=== PATIENT | male | born 1980 | race Caucasian/White ===

== ENCOUNTER 2025-04-15 06:22 | Emergency (ER) | payer OTHER, SELFPAY ==
[2025-04-15 06:23] VITALS: BP 139/95
--- NOTE | 2025-04-15 07:09 | ED.GENMED ---
History of Present Illness
<Hernan Ryan MD, Resident - Last Filed: 04/15/25 10:07>
General
Chief Complaint: Abdominal Pain
Source: patient and significant other
Time Seen by Provider: 04/15/25 06:52
History of Present Illness
History of Present Illness:
Patient is a 44-year-old male with no PMH who presents to the [facility] ED with sudden onset, severe abdominal pain that started at 5:30 this morning upon waking. Since onset, the pain has been constant, localized to his right flank, fluctuating
in intensity, nonradiating, and nonmigrating. Nausea and vomiting x 2 in the ED this morning. Patient says his stomach has been feeling off for couple days, but he denies pain, nausea, or vomiting prior to this morning. Patient also had a brief
syncopal episode this morning, which caused him to hit his head on the nightstand. No headache, lightheadedness, dizziness, weakness, or numbness. The episode was witnessed by his , who states the patient was sweaty and pale prior to losing
consciousness. Patient has had intermittent palpitations over the last couple days. No chest pain, fever, fatigue, or chills. Patient drinks approximately 3 glasses of wine per night, with his last drink 2 days ago.
Past History
<Hrenan Ryan MD, Resident - Last Filed: 04/15/25 10:07>
Past History
ED Past Medical History: None
ED Past Surgical History: Other (Hernia repairs as an )
Social History
Tobacco: Non-smoker
Alcohol: Daily (3 glasses wine)
Drug: None
Personal:
Living: with family
Employment: Employed
Family History
Family History: CAD (Grandfather (smoker)) and Other (Kidney stones (mom)); Negative Sudden
Review of Systems
<Hernan Ryan MD, Resident - Last Filed: 04/15/25 10:07>
Review of Systems
Constitutional: Denies fever, fatigue or chills
Cardiac: Reports diaphoresis, palpitations and syncope; Denies chest pain
ABD/GI: Reports abdominal pain, nausea and vomiting; Denies diarrhea
: Reports flank pain; Denies dysuria, frequency, urgency or bleeding
Neurological: Denies dizzy, headache, weakness or numbness
Phy Exam
<Hernan Ryan MD, Resident - Last Filed: 04/15/25 10:07>
Physical Exam
Physical Exam:
General: Mild distress due to pain. Easily communicative.
GI: Soft, nondistended. Mildly TTP right flank. No McBurney point tenderness. Negative Evangelista. Negative Rovsing. No rigidity, guarding, or rebound tenderness.
: No CVA tenderness.
HEENT: NCAT. No gross ecchymoses, edema, or deformities.
CV: RRR. S1, S2 noted. No M/R/G. No LE edema.
Pulm: CTAB. No wheezes or crackles. No cyanosis.
Neuro: Sensory, motor intact all extremities. CN II through XII intact. No dysmetria. No dysdiadochokinesia. EOMI. Visual brown intact. PERRLA.
Psych: Calm
Course
<Hernan Ryan MD, Resident - Last Filed: 04/15/25 10:07>
Orders/Labs/Results
Orders:
Orders
04/15/25 07:19
0.9% Sodium Chloride 1000 ml [Nss] 1,000 ml IV BOLUS
04/15/25 07:22
Ketorolac [Toradol] 15 mg IV NOW STA
04/15/25 07:27
Ondansetron Injectable [Zofran] 4 mg IV NOW STA
04/15/25 07:28
CT Abd/pel Without Iv Or Oral Urgent
Comment:
Reason For Exam: R flank pain
04/15/25 07:29
Electrocardiogram (*1) Urgent
Reason for Study: Syncope
04/15/25 07:32
Complete Blood Count/With Diff Urgent
Comprehensive Metabolic Panel Urgent
Lipase Urgent
Troponin I Urgent
04/15/25 08:00
Flush (0.9% Sodium Chloride) [Flush (Nss)] See Dose Instructions IV PER PROTOCOL
04/15/25 08:26
Tamsulosin [Flomax] 0.4 mg PO NOW ONE
04/15/25 08:37
Urinalysis Reflex To Culture Urgent
Date Specimen was Collected: 04/15/25
Time Specimen was Collected: 08:36
Urine Microscopic Reflex Cult Urgent
04/15/25 09:20
Ketorolac [Toradol] 15 mg IV NOW STA
Abnormal Lab Results
04/15/25 04/15/25
07:32 08:37
RBC 4.56 L 10^6/uL
(4.70-6.10)
MCH 32.7 H pg
(27.0-31.0)
Absolute Lymphs (auto) 0.9 L 10^3/uL
(1.2-3.4)
Neutrophils % 79.7 H %
(42.2-75.2)
Lymphocytes % 13.6 L %
(20.5-51.1)
Glucose 140 H mg/dl
(70-99)
Urine Ketones 3+ A
(Negative)
Ur Occult Blood Reflex 4+ A
(Negative)
Urine RBC 40-50 A /HPF
(0-2)
Urine Bacteria (Reflex) Few A
(Negative)
Urine Albumin (Reflex) 2+ A
(Neg - Trace)
04/15/25 07:32
04/15/25 07:32
Vital Signs
Initial and Last Documented VS:
Initial Vital Signs
Pulse Resp BP Pulse Ox
61 18 139/95 100
04/15/25 06:23 04/15/25 06:23 04/15/25 06:23 04/15/25 06:23
Last Documented Vital Signs
Temp Pulse Resp BP Pulse Ox
98.3 F 71 18 116/63 98
04/15/25 09:40 04/15/25 09:40 04/15/25 06:23 04/15/25 09:40 04/15/25 09:40
<Sue Vazquez, - Last Filed: 04/15/25 09:22>
Orders/Labs/Results
Orders:
Orders
04/15/25 07:19
0.9% Sodium Chloride 1000 ml [Nss] 1,000 ml IV BOLUS
04/15/25 07:22
Ketorolac [Toradol] 15 mg IV NOW STA
04/15/25 07:27
Ondansetron Injectable [Zofran] 4 mg IV NOW STA
04/15/25 07:28
CT Abd/pel Without Iv Or Oral Urgent
Comment:
Reason For Exam: R flank pain
04/15/25 07:29
Electrocardiogram (*1) Urgent
Reason for Study: Syncope
04/15/25 07:32
Complete Blood Count/With Diff Urgent
Comprehensive Metabolic Panel Urgent
Lipase Urgent
Troponin I Urgent
04/15/25 08:00
Flush (0.9% Sodium Chloride) [Flush (Nss)] See Dose Instructions IV PER PROTOCOL
04/15/25 08:26
Tamsulosin [Flomax] 0.4 mg PO NOW ONE
04/15/25 08:37
Urinalysis Reflex To Culture Urgent
Date Specimen was Collected: 04/15/25
Time Specimen was Collected: 08:36
Urine Microscopic Reflex Cult Urgent
04/15/25 09:20
Ketorolac [Toradol] 15 mg IV NOW STA
Abnormal Lab Results
04/15/25 04/15/25
07:32 08:37
RBC 4.56 L 10^6/uL
(4.70-6.10)
MCH 32.7 H pg
(27.0-31.0)
Absolute Lymphs (auto) 0.9 L 10^3/uL
(1.2-3.4)
Neutrophils % 79.7 H %
(42.2-75.2)
Lymphocytes % 13.6 L %
(20.5-51.1)
Glucose 140 H mg/dl
(70-99)
Urine Ketones 3+ A
(Negative)
Ur Occult Blood Reflex 4+ A
(Negative)
Urine RBC 40-50 A /HPF
(0-2)
Urine Bacteria (Reflex) Few A
(Negative)
Urine Albumin (Reflex) 2+ A
(Neg - Trace)
04/15/25 07:32
04/15/25 07:32
Vital Signs
Initial and Last Documented VS:
Initial Vital Signs
Pulse Resp BP Pulse Ox
61 18 139/95 100
04/15/25 06:23 04/15/25 06:23 04/15/25 06:23 04/15/25 06:23
Last Documented Vital Signs
Temp Pulse Resp BP Pulse Ox
98.3 F 71 18 116/63 98
04/15/25 09:40 04/15/25 09:40 04/15/25 06:23 04/15/25 09:40 04/15/25 09:40
<Hernan Ryan MD, Resident - Last Filed: 04/15/25 10:07>
MDM/Problems Addressed
Differential Diagnosis Includes:
Ureterolithiasis
Appendicitis
Gastroenteritis
Cystitis
Pyelonephritis
Small bowel obstruction
MDM/Problems Addressed:
Assessment: Patient is a 44-year-old male with no PMH who presents to the [facility] ED with sudden onset, severe right flank pain that is constant, fluctuates intensity, and is associated with nausea, vomiting (x 2), intermittent palpitations, and
a syncopal episode that caused symptoms while he hit his head. The syncopal episode was preceded by diaphoresis and paleness. Physical exam shows mild TTP in right flank. CTAP shows 2-3 mm calculus in right mid ureter. CBC, CMP, lipase, troponin
unremarkable. Suspect ureterolithiasis.
Plan:
#Abdominal pain
EKG
Labs: CBC, CMP, troponin, lipase, UA
Imaging: CTAP w/o contrast
IVFs, pain control, antiemetics
<Hernan Ryan MD, Resident - Last Filed: 04/15/25 10:07>
*Pulse Oximetry
SaO2: 100
Oxygen Mode of Delivery: Room air
Patient hypoxic: no
*Critical Care Note
Total Time (30-74mins, 75-104mins- exclusive of procedures): Not Applicable
ED Attending Note
<Hernan Ryan MD, Resident - Last Filed: 04/15/25 10:07>
-
Portions of this chart may have been created with voice recognition software.� Occasional wrong word or��sound alike� substitutions may have occurred due to the inherent limitations of voice recognition software.
<Sue Vazquez DO - Last Filed: 04/15/25 09:22>
ED Attending Note
Patient seen and examined by attending physician: Yes
I performed the substantive portion of visit, reviewed & personally made and approve the management plan that is documented in note by myself or HERMES.: Yes
I performed a history and physical exam of patient and discussed management with resident, I reviewed resident's note and agree with documented findings and plan of care.: Yes
ED Attending Note:
44-year-old male without significant past medical history presenting for acute onset of right flank pain. Patient reports that he woke up at 530 this morning with right flank pain. He went to the bathroom, urinated without difficulty and went back
to his bed. Notes that he felt diaphoretic, nauseous, subsequently had a witnessed syncopal episode by his spouse, struck his head on an end table. Denies prodromal chest pain or difficulty breathing. Currently notes some persistent right flank
pain, some generalized abdominal discomfort. Reports surgical history of hernia repair. Denies any fever. Denies any changes in his stool. Had an episode of vomiting upon arrival to the hospital
Vital signs on arrival are normal. On exam, patient is resting comfortably, no acute distress. Patient afebrile, nontoxic. No significant tenderness to the abdomen. Minimal tenderness to the right flank. Unremarkable cardiac and pulmonary exam.
No significant signs of head trauma. No focal neurologic deficits. Symptom presentation appears most consistent with nephrolithiasis, particularly given acute onset with associated nausea and vomiting. Appendicitis is also consideration, however
no significant tenderness in the right lower quadrant. Plan for laboratory analysis, urinalysis, CT abdominal imaging. Regarding syncopal episode, suspected vasovagal quality to symptoms. Likely reaction to pain and nausea. [place] CT head
negative, without current indication for CT brain imaging. Will screen with EKG. For therapeutics, will start patient on IV fluids, Zofran, Toradol.
08:40 - Patient's labs unremarkable. No leukocytosis. CT shows right sided mid ureteral stent, 2 to 3 mm. Pain has improved after Toradol. Pending urinalysis. However at this time low suspicion for infected stone. EKG nonischemic. Will start
patient on Flomax however feel stable for discharge with outpatient supportive and expectant management. Will provide urology follow-up
Discharge Plan
Departure
Patient Disposition: Home (Routine Discharge)
Date of Disposition: 04/15/25
Time of Disposition: 09:20
Patient with high blood pressure during this ER visit?: No
Discharge Problem:
Right kidney stone
Instructions: Kidney Stones (DC)
Prescriptions:
New
tamsulosin [Flomax] 0.4 mg capsule
0.4 mg PO DAILY 7 Days Qty: 7 0RF
ibuprofen 600 mg tablet
600 mg PO Q8H PRN (Reason: Pain) Qty: 20 0RF
ondansetron HCl 4 mg tablet
4 mg PO Q8H 2 Days Qty: 6 0RF
Referrals:
NONE,* [Family Provider, Internal Medicine]
Jose Dash MD [Active, Urology]
Activity Restrictions/Additional Instructions:
You were seen in the emergency department for right-sided abdominal pain
You were found to have a right sided kidney stone
Please follow-up closely with your primary care physician.
Return to the emergency department for any worsening of your symptoms, or any development of chest pain, difficulty breathing, abdominal pain with persistent vomiting and inability to tolerate food or liquid by mouth (concern for dehydration),
weakness, headache or confusion, fever greater than 100.4, or any additional symptoms that are concerning to you.
Thank you for choosing [facility].
Interventions
Interventions:
*Risk Screen - Suicide Last Done: 04/15/25 06:23
*General Assessment Last Done: 04/15/25 06:23
*Neglect/Abuse Screening Last Done: 04/15/25 06:23
*ED Influenza Vaccine History Last Done: 04/15/25 06:23
Discharge Date and Time
Print Language: FRENCH
[2025-04-15 07:22] VITALS: BMI 23.4
[2025-04-15] MEDS: TORADOL 15 MG IV ×2 (07:35→09:34)
[2025-04-15] MEDS: ZOFRAN 4 MG IV (07:35)
[2025-04-15] MEDS: NSS 1000 IV (07:35)
[2025-04-15 07:54] LABS: Hematocrit 41.0 % (39.0-52.0); Hemoglobin 14.9 g/dL (13.0-18.0); Mean Corp Hgb Conc. 36.3 g/dL (33.0-37.0); Mean Corpuscular Volume 89.9 fL (80.0-94.0); Nucleated Red Blood Cells % 0 % (-); Platelet Count 172 10^3/uL (130-400); Red Cell Dist. Width 12.1 % (11.5-14.5)
[2025-04-15 08:08] LABS: ALT (SGPT) 17 U/L (0-50); AST (SGOT) 18 U/L (17-59); Albumin 4.4 g/dl (3.5-5.0); Alkaline Phosphatase 38 U/L (38-126); Blood Urea Nitrogen 13 mg/dl (9-20); Calcium 9.3 mg/dl (8.4-10.2); Carbon Dioxide 28 mmol/L (22-30); Chloride 102 mmol/L (98-107); Estimated Creatinine Clearance 124 ml/min; Glucose 140 mg/dl (70-99); Lipase 141 U/L (23-300); Potassium 3.9 mmol/L (3.5-5.1); Sodium 136 mmol/L (135-145); Total Protein 7.0 g/dl (6.3-8.2); eGFR > 60.00
[2025-04-15 08:18] LABS: Troponin I < 0.012 ng/ml
[2025-04-15] MEDS: FLOMAX 0.4 MG PO (08:36)
[2025-04-15 09:08] LABS: Urine Character Clear (Clear)
[2025-04-15 09:28] LABS: Urine Red Blood Cell 40-50 /HPF (0-2); Urine Squamous Cell 0-2 /LPF (Few); Urine White Cell 0-2 /HPF (0-5)
[2025-04-15 09:40] VITALS: BP 116/63
== END 2025-04-15 10:30 | disposition home or self-care (01) ==
LOC: EMR 06:22
PROVIDERS: EMERGENCY PHYSICIAN Student in an Organized Health Care Education/Training Program
DX: N20.0 Calculus of kidney (principal); I25.2 Old myocardial infarction; Z82.49 Family history of ischemic heart disease and other diseases of the circulatory system
CPT/HCPCS: 99284; 96374; 96375; 96376; 96361; 74176; 80053; 81003; 81015; 83690; 84484; 85025; 93005